=== PATIENT | female | born 1945 | race Caucasian/White ===

== ENCOUNTER 2023-11-24 08:11 | Emergency (ER) | payer MEDICARE, OTHER, SELFPAY ==
[2023-11-24 08:25] VITALS: BP 126/60
[2023-11-24] MEDS: DUONEB 3 ML INH (08:35)
[2023-11-24 08:44] LABS: % Basophils 0.5 % (0-2); % Eosinophils 4.4 % (0-6); % Immature Granulocytes 0.2 % (0-0.5); % Lymphocytes 36.4 % (20.5-51.1); % Monocytes 7.8 % (1.7-9.3); % Neutrophils 50.7 % (42.2-75.2); Absolute Eosinophils 0.3 10^3/uL (0-0.7); Absolute Lymphocytes 2.2 10^3/uL (1.2-3.4); Absolute Monocytes 0.5 10^3/uL (0.1-0.6); Hematocrit 39.9 % (37.0-47.0); Hemoglobin 13.1 g/dL (12.0-16.0); Mean Corp Hgb Conc. 32.8 g/dL (33.0-37.0); Mean Corpuscular Hgb 28.4 pg (27.0-31.0); Mean Corpuscular Volume 86.6 fL (81.0-99.0); Mean Platelet Volume 9.1 fL (7.4-10.4); Nucleated Red Blood Cells % 0 %; Platelet Count 285 10^3/uL (130-400); Red Blood Cell Count 4.61 10^6/uL (4.20-5.40); Red Cell Dist. Width 13.1 % (11.5-14.5); White Blood Cell Count 5.9 10^3/uL (4.8-10.8)
[2023-11-24 09:00] VITALS: BP 133/80
--- NOTE | 2023-11-24 09:00 | ED.GENMED ---
History of Present Illness
General
Chief Complaint: Chest Pain
Source: patient
Exam Limitations: dementia
Time Seen by Provider: 11/24/23 08:20
Nursing documentation reviewed up to this point in time: agreed with
History of Present Illness
History of Present Illness:
78 y/o F with h/o anxiety, lung cancer, dementia
right lower lobectomy complication from punctured lung from thyroid procedure
here with tani [email or web address] this morning sometime aroun d7 am
she has dementia and doesn't recall details; to most of my questions, she answered, 'i am not sure'
she does have asthma but currently doesn't feel overly SOB
she has no pain with deep breathing
pt has not had known fever, cough, leg swelling, syncope
no h/o CAD or cardiac conditoins
i spoke wtih RN at [facility]
says that she came to her in a panic regarding L sided chest pain an dwas obviously anxious and tachypneic
apparently recently the psychiatrist has lowered her ativan dose, she had been up to 2 mg daily but they are backign down to ativan 0.5 mg bid and she has been more anxious recently
they gave her albuterol but she was insistent on coming ot the ER
pt doesn't recall that she ever had significant pain and is just calling it a discomfot.
no h/o DVT/PE
Past History
Past History
ED Past Medical History: Asthma, GERD, HTN, Hypercholesterolemia, Hyperthyroidism (hyperparathyroidism), Hypothyroidism, Psychiatric (Anxiety, Depression) and Other (OA, Right lower lobe of lung Punctured during surgery, slight Dementia)
ED Past Surgical History: Appendectomy, Gynecological (Hysterectomy), Orthopedic (L BRIE 09/2018) and Other (Hyperparathyroid removed, Deviated septum, Right eye surgery)
Patient has exhibited threatening behavior?: No
Social History
Tobacco: Non-smoker
Alcohol: Occasional (Wine 1-2 glasses)
Drug: None
Personal:
Living: retirement ([facility])
Employment: Retired
Family History
Family History: Other
Review of Systems
Review of Systems
Allergies reviewed?: Yes
All Other Systems: Not applicable
Phy Exam
Physical Exam
Physical Exam:
GENERAL: Alert , anxious
EYE: pupils equal and reactive
NECK: Supple
ENT: o/p clr, mmm.
CARDIAC: Regular rate and rhythm .no obvious murmur
LUNGS: R sided upper lobe no BS
mild tachypnea
no significant wheezing
no cough
no splinting
no crackles
ABDOMEN: Soft, without focal tenderness, no r/g, no cvat, normal bowel sounds
NEUROLOGICAL: Alert and oriented, no focal neuro deficits
SKIN: Warm and dry, skin intact.
MUSCULOSKELETAL: No edema, well perfused. neg hannah's sign
PSYCH: anxious
Scores
Heart Score for Chest Pain Patients
STEMI patient?: No
History: Slightly or Non-Suspicious
ECG: Nonspecific Repolarization
Age: >/= 65 years
Risk Factors: 1 or 2 Risk Factors
Troponin: </= Normal Limit
Heart Score for Chest Pain Patients: 4
Heart Score Risk: 20.3% MACE over next 6 weeks
Course
Orders/Labs/Results
Orders:
Orders
11/24/23 08:18
EKG [Electrocardiogram (*1)] Urgent
Reason for Study: Chest Pain
EKG- Treatment ONCE
11/24/23 08:31
Ipratropium/Albuterol Sulfate [Duoneb] 3 ml INH R NOW ONE
11/24/23 08:32
Complete Blood Count/With Diff Urgent
Comprehensive Metabolic Panel Urgent
D-Dimer Urgent
Lipase Urgent
Troponin I Urgent
11/24/23 09:02
Lorazepam [Ativan] 0.5 mg PO NOW STA
11/24/23 09:52
EKG- Treatment ONCE
CR Chest - 2 Views Urgent
Comment:
Reason For Exam: chest pain
11/24/23 11:30
Electrocardiogram (*1) Urgent
Reason for Study: Chest Pain
11/24/23 11:51
Troponin I Urgent
Abnormal Lab Results
11/24/23
08:32
MCHC 32.8 L g/dL
(33.0-37.0)
Carbon Dioxide 31 H mmol/L
(22-30)
Glucose 113 H mg/dl
(70-99)
11/24/23 08:32
11/24/23 08:32
Vital Signs
Initial and Last Documented VS:
Initial Vital Signs
Pulse Resp BP Pulse Ox
75 16 126/60 95
11/24/23 08:25 11/24/23 08:25 11/24/23 08:25 11/24/23 08:25
Last Documented Vital Signs
Temp Pulse Resp BP Pulse Ox
98.2 F 75 24 133/80 96
11/24/23 08:37 11/24/23 09:45 11/24/23 09:45 11/24/23 09:00 11/24/23 09:45
MDM/Problems Addressed
Differential Diagnosis Includes:
chest pain, anxiety, acs, msk pain
MDM/Problems Addressed:
78 y/o F with dementia
according to Nursing staff was in a panic c/o chest pain this morning and seemed very anxious
pt does not really recall any of this well now
she has minimal discomfort if any
her vitals stable, ekg nonischemic
given timing and herat score, pt had 2 troponins and ekgs which were neg for ischemia
she was well here, asking to eat
will be transferred back to facility
*Critical Care Note
Total Time (30-74mins, 75-104mins- exclusive of procedures): Not Applicable
ED Attending Note
-
Portions of this chart may have been created with voice recognition software.� Occasional wrong word or��sound alike� substitutions may have occurred due to the inherent limitations of voice recognition software.
Discharge Plan
Departure
Patient Disposition: Home (Routine Discharge)
Date of Disposition: 11/24/23
Time of Disposition: 12:56
Patient with high blood pressure during this ER visit?: No
Condition: Fair
Covid-19: Not Applicable
Discharge Problem:
Chest pain, Anxiety
Instructions: Anxiety, Adult ED, Chest Pain PCP Follow Up
Prescriptions:
No Action
albuterol sulfate 1 PUFF HFA aerosol inhaler
1 puff inhalation R Q4HPRN PRN (Reason: sob)
fluticasone propion-salmeterol [Advair Diskus] 500-50 mcg/dose blister with device
1 ea INHALATION R BID
magnesium hydroxide [Milk of Magnesia] 400 mg/5 mL Suspension
30 ml PO DAILYPRN PRN (Reason: no BM > 3 days)
bisacodyl 10 mg Suppository
10 mg [place] DAILYPRN PRN (Reason: if no bm aftr mom)
albuterol sulfate 2.5 mg /3 mL (0.083 %) Solution For Nebulization
2.5 mg INHALATION R Q6HPRN PRN (Reason: wheezing)
loperamide [Anti-Diarrheal (loperamide)] 2 mg Capsule
2 mg PO Q4HPRN PRN (Reason: diarrhea)
lorazepam 0.5 mg Tablet
0.5 mg PO Q8HPRN PRN (Reason: anxiety)
lorazepam 0.5 mg Tablet
1 mg PO BID
acetaminophen 325 mg tablet
650 mg PO Q4HPRN PRN (Reason: mild Pain)
zolpidem 5 mg tablet
5 mg PO HS
bupropion HCl [Wellbutrin SR] 150 mg Tablet Sustained-Release 12 Hr
150 mg PO DAILY
diphenhydramine HCl [Benadryl] 25 mg Capsule
25 mg PO TIDPRN PRN (Reason: itching)
oxycodone 5 mg tablet
5 mg PO Q4HPRN PRN (Reason: severe pain)
Referrals:
Benedict Cochran MD [Family Provider] -
Activity Restrictions/Additional Instructions:
Cinda's workup today here was unremarkable, she has 2 negative troponins and no EKG findings to be concerned about her heart. Her x-ray appears stable. She has no pneumonia. Her blood work was also reassuring. I suspect that she became anxious
this morning. We did give her a dose of 0.5 mg Ativan orally.
Interventions
Interventions:
*Risk Screen - Suicide Last Done: 11/24/23 08:25
*General Assessment Last Done: 11/24/23 08:25
*Neglect/Abuse Screening Last Done: 11/24/23 08:25
ED- Fall Risk Assessment Last Done: 11/24/23 08:42
*ED COVID-19 Vaccine History Last Done: 11/24/23 15:22
*Nursing Disposition Last Done: 11/24/23 15:22
ED- Cardiac Assessment Last Done: 11/24/23 08:42
Discharge Date and Time
Discharge Date/Time: 11/24/23 15:23
Print Language: SOU[place] KORE[place]
[2023-11-24 09:14] LABS: Troponin I < 0.012 ng/ml
[2023-11-24 09:15] LABS: ALT (SGPT) 29 U/L (0-35); AST (SGOT) 24 U/L (14-36); Albumin 4.1 g/dl (3.5-5.0); Alkaline Phosphatase 82 U/L (38-126); Blood Urea Nitrogen 15 mg/dl (7-17); Calcium 9.8 mg/dl (8.4-10.2); Carbon Dioxide 31 mmol/L (22-30); Chloride 102 mmol/L (98-107); Glucose 113 mg/dl (70-99); Lipase 292 U/L (23-300); Potassium 4.1 mmol/L (3.5-5.1); Sodium 141 mmol/L (135-145); Total Bilirubin 0.7 mg/dl (0.2-1.3); Total Protein 6.4 g/dl (6.3-8.2); eGFR > 60.00
[2023-11-24] MEDS: ATIVAN 0.5 MG PO (09:21)
[2023-11-24 12:32] LABS: Troponin I < 0.012 ng/ml
== END 2023-11-24 15:23 | disposition home or self-care (01) ==
LOC: EMR 08:11
PROVIDERS: Physician Assistant; EMERGENCY PHYSICIAN Student in an Organized Health Care Education/Training Program; FAMILY PHYSICIAN Family Medicine
DX: R07.89 Other chest pain (principal); F41.9 Anxiety disorder, unspecified; F03.94 Unspecified dementia, unspecified severity, with anxiety
CPT/HCPCS: 99285; 94640; 71046; 80053; 83690; 84484; 85025; 85379; 93005

== ENCOUNTER 2024-03-19 07:11 | Emergency (ER) | payer MEDICARE, OTHER, SELFPAY ==
[2024-03-19 07:19] VITALS: BP 139/71
--- NOTE | 2024-03-19 07:21 | ED.GENMED ---
History of Present Illness
General
Chief Complaint: Breathing Problem
Source: patient
Exam Limitations: none
Time Seen by Provider: 03/19/24 07:15
History of Present Illness
History of Present Illness:
See MDM
Past History
Past History
ED Past Medical History: Asthma, GERD, HTN, Hypercholesterolemia, Hyperthyroidism (hyperparathyroidism), Hypothyroidism, Psychiatric (Anxiety, Depression) and Other (OA, Right lower lobe of lung Punctured during surgery, slight Dementia)
ED Past Surgical History: Appendectomy, Gynecological (Hysterectomy), Orthopedic (L BRIE 09/2018) and Other (Hyperparathyroid removed, Deviated septum, Right eye surgery)
Patient has exhibited threatening behavior?: No
Social History
Tobacco: Non-smoker
Alcohol: Occasional (Wine 1-2 glasses)
Drug: None
Personal:
Living: senior living ([facility])
Employment: Retired
Family History
Family History: Other
Phy Exam
Physical Exam
Physical Exam:
See MDM
Scores
Heart Failure Risk
Heart Failure Risk Score: Not Applicable
Course
Orders/Labs/Results
Orders:
Orders
03/19/24 07:21
Electrocardiogram (*1) Urgent
Reason for Study: Shortness of Breath
EKG- Treatment ONCE
CR Chest - 2 Views Urgent
Comment:
Reason For Exam: SOB
03/19/24 07:25
Complete Blood Count/With Diff Urgent
Comprehensive Metabolic Panel Urgent
03/19/24 08:39
Ipratropium/Albuterol Sulfate [Duoneb] 3 ml INH R NOW ONE
03/19/24 11:17
Case Management Consult ONCE
Case Management Consult: Discharge Planning
Comment: home O2
03/19/24 11:33
Ipratropium/Albuterol Sulfate [Duoneb] 3 ml INH R NOW ONE
Abnormal Lab Results
03/19/24
07:25
MCHC 31.7 L g/dL
(33.0-37.0)
Eosinophils % 8.3 H %
(0-6)
Carbon Dioxide 33 H mmol/L
(22-30)
Glucose 104 H mg/dl
(70-99)
03/19/24 07:25
03/19/24 07:25
Vital Signs
Initial and Last Documented VS:
Initial Vital Signs
Pulse Resp Pulse Ox
82 22 93
03/19/24 07:18 03/19/24 07:18 03/19/24 07:18
Last Documented Vital Signs
Temp Pulse Resp BP Pulse Ox
98.0 F 92 20 129/85 93
03/19/24 07:19 03/19/24 09:45 03/19/24 09:45 03/19/24 09:00 03/19/24 11:15
MDM/Problems Addressed
Differential Diagnosis Includes:
HPI and MDM Narrative:
78-year-old female presenting with resolved shortness of breath. She does have a history of asthma. She was concerned because her albuterol inhaler was not working. She was given a DuoNeb and Decadron and symptoms immediately started to improve.
On arrival, patient is smiling and states she feels so much better. Given her prior history of lung resection, will obtain chest x-ray. Will obtain basic blood work and screening EKG.
Physical exam
General: Well appearing and non-toxic
HEENT: protecting airway
Neck: appears supple
CV: No evidence of cyanosis
Resp: No accessory muscle use. Mildly diminished breath sounds in the right
Abd: Non-distended
Extremities: No deformities. No leg edema or tenderness
Neuro: alert
Psych: Normal affect
Skin: Intact
Problems Addressed including Acute and Chronic Conditions affecting care:
1. Asthma exacerbation
Acuity: acute
Prognosis: stable
Details: Symptoms improved with DuoNeb and Decadron provided by EMS. Will obtain chest x-ray
Updates
Chest x-ray clear and appears unchanged from prior. On reassessment, she feels comfortable going home and feels better
Prior to discharge, patient intermittently becoming hypoxic. Although, she is feeling better. She was placed on 2 L nasal cannula and I suggested that she be admitted. Patient declined. I did discuss the case with case management who was unable
to set up home oxygen. Patient still stating that she wants to go home. She was given another DuoNeb prior to discharge discussed strict return precautions. Patient understands the risk of being discharged
Differential Diagnosis (but not limited to): Asthma exacerbation, pleural effusion, pneumonia
Testing considered: Viral testing
Drug therapy (if applicable): OTC meds, please see d/c instruction regarding Rx drugs
Amount and/or Complexity of Data Reviewed
Clinical info obtained from: Patient
External data reviewed: N/A
Labs I independently reviewed (but not limited to): White blood cell count normal
Radiology: X-ray independently reviewed: Chest x-ray clear
Pulse Ox: not hypoxic
EKG independently reviewed: N/A
Pressure Vessel Inspector: N/A
Critical Care: N/A
Risk of Complication:
Social Determinants of health: Good social support
Discussed with other providers: N/A
Escalation of Care includes Admit/Obs: After being observed in the Emergency Department, pt stable for discharge.
Occasional wrong word or 'sound a like' substitutions may have occurred due to the inherent limitations of voice recognition software. Read the chart carefully and recognize, using context, where substitutions have occurred.
*Critical Care Note
Total Time (30-74mins, 75-104mins- exclusive of procedures): Not Applicable
ED Attending Note
-
Portions of this chart may have been created with voice recognition software.� Occasional wrong word or��sound alike� substitutions may have occurred due to the inherent limitations of voice recognition software.
Discharge Plan
Departure
Patient Disposition: Home (Routine Discharge)
Date of Disposition: 03/19/24
Time of Disposition: 09:05
Patient with high blood pressure during this ER visit?: No
Discharge Problem:
Asthma exacerbation
Instructions: Asthma, Adult (DC)
Prescriptions:
New
prednisone 10 mg tablet
See Rx Instructions .ROUTE .COMPLEX Qty: 45 0RF
Rx Instructions:
5 tabs day 1-3, 4 tabs day 4-6, 3 tabs day 7-9, 2 tabs day 10-12, 1 tab day 13-15
No Action
albuterol sulfate 1 PUFF HFA aerosol inhaler
1 puff inhalation R Q4HPRN PRN (Reason: sob)
fluticasone propion-salmeterol [Advair Diskus] 500-50 mcg/dose blister with device
1 ea INHALATION R BID
magnesium hydroxide [Milk of Magnesia] 400 mg/5 mL Suspension
30 ml PO DAILYPRN PRN (Reason: no BM > 3 days)
bisacodyl 10 mg Suppository
10 mg [place] DAILYPRN PRN (Reason: if no bm aftr mom)
albuterol sulfate 2.5 mg /3 mL (0.083 %) Solution For Nebulization
2.5 mg INHALATION R Q6HPRN PRN (Reason: wheezing)
loperamide [Anti-Diarrheal (loperamide)] 2 mg Capsule
2 mg PO Q4HPRN PRN (Reason: diarrhea)
lorazepam 0.5 mg Tablet
0.5 mg PO Q8HPRN PRN (Reason: anxiety)
lorazepam 0.5 mg Tablet
1 mg PO BID
acetaminophen 325 mg tablet
650 mg PO Q4HPRN PRN (Reason: mild Pain)
zolpidem 5 mg tablet
5 mg PO HS
bupropion HCl [Wellbutrin SR] 150 mg Tablet Sustained-Release 12 Hr
150 mg PO DAILY
diphenhydramine HCl [Benadryl] 25 mg Capsule
25 mg PO TIDPRN PRN (Reason: itching)
oxycodone 5 mg tablet
5 mg PO Q4HPRN PRN (Reason: severe pain)
Referrals:
Benedict Cochran MD [Family Provider] -
Activity Restrictions/Additional Instructions:
Please return for any worsening symptoms.
You may return at any time if you have further concerns.
Please follow up with your doctor at the first available appointment, preferably this week.
Thank you for choosing [facility].
Discharge Date and Time
Print Language: SAMMARINESE
[2024-03-19 07:41] LABS: % Basophils 1.2 % (0-2); % Eosinophils 8.3 % (0-6); % Lymphocytes 37.6 % (20.5-51.1); % Monocytes 8.3 % (1.7-9.3); % Neutrophils 44.6 % (42.2-75.2); Absolute Basophils 0.1 10^3/uL (0-0.2); Absolute Eosinophils 0.4 10^3/uL (0-0.7); Absolute Lymphocytes 1.9 10^3/uL (1.2-3.4); Absolute Monocytes 0.4 10^3/uL (0.1-0.6); Absolute Neutrophils 2.2 10^3/uL (1.4-6.5); Hematocrit 37.9 % (37.0-47.0); Mean Corp Hgb Conc. 31.7 g/dL (33.0-37.0); Mean Corpuscular Hgb 28.2 pg (27.0-31.0); Mean Platelet Volume 9.4 fL (7.4-10.4); Nucleated Red Blood Cells % 0 %; Platelet Count 247 10^3/uL (130-400); Red Blood Cell Count 4.26 10^6/uL (4.20-5.40); Red Cell Dist. Width 12.6 % (11.5-14.5)
[2024-03-19 07:52] LABS: ALT (SGPT) 21 U/L (0-35); AST (SGOT) 22 U/L (14-36); Alkaline Phosphatase 78 U/L (38-126); Blood Urea Nitrogen 14 mg/dl (7-17); Carbon Dioxide 33 mmol/L (22-30); Chloride 99 mmol/L (98-107); Glucose 104 mg/dl (70-99); Sodium 138 mmol/L (135-145); Total Bilirubin 0.4 mg/dl (0.2-1.3); Total Protein 6.3 g/dl (6.3-8.2); eGFR > 60.00
[2024-03-19 08:00] VITALS: BP 146/85
[2024-03-19] MEDS: DUONEB 3 ML INH (08:56)
[2024-03-19 09:00] VITALS: BP 129/85
--- NOTE | 2024-03-19 11:39 | CM ---
CM was consulted for home oxygen. [place] spoke with Dr. Masterson who stated that patient does not need home oxygen at this time. Plan for transport back to her home.
[2024-03-19] MEDS: ProAIR HFA INHALER 2 PUFF INH (11:45)
== END 2024-03-19 12:04 | disposition home or self-care (01) ==
LOC: EMR 07:11
PROVIDERS: EMERGENCY PHYSICIAN Student in an Organized Health Care Education/Training Program; FAMILY PHYSICIAN Family Medicine
DX: J45.901 Unspecified asthma with (acute) exacerbation (principal); K21.9 Gastro-esophageal reflux disease without esophagitis; I10 Essential (primary) hypertension; E78.00 Pure hypercholesterolemia, unspecified; E03.9 Hypothyroidism, unspecified; F41.8 Other specified anxiety disorders; Z90.49 Acquired absence of other specified parts of digestive tract; Z90.710 Acquired absence of both cervix and uterus
CPT/HCPCS: 99284; 94640; 71046; 80053; 85025; 93005

== ENCOUNTER 2024-06-08 16:59 | Emergency (ER) | payer MEDICARE, OTHER, SELFPAY ==
[2024-06-08 17:05] VITALS: BMI 26.2
[2024-06-08 17:07] VITALS: BP 143/76
[2024-06-08 17:09] VITALS: BP 143/76
[2024-06-08 17:17] LABS: % Basophils 0.7 % (0-2); % Eosinophils 3.7 % (0-6); % Immature Granulocytes 0.1 % (0-0.5); % Lymphocytes 28.9 % (20.5-51.1); % Neutrophils 59.6 % (42.2-75.2); Absolute Basophils 0.1 10^3/uL (0-0.2); Absolute Eosinophils 0.3 10^3/uL (0-0.7); Absolute Monocytes 0.5 10^3/uL (0.1-0.6); Hematocrit 38.5 % (37.0-47.0); Hemoglobin 12.5 g/dL (12.0-16.0); Mean Corp Hgb Conc. 32.5 g/dL (33.0-37.0); Mean Corpuscular Volume 86.1 fL (81.0-99.0); Mean Platelet Volume 9.9 fL (7.4-10.4); Nucleated Red Blood Cells % 0 %; Platelet Count 255 10^3/uL (130-400); Red Blood Cell Count 4.47 10^6/uL (4.20-5.40); Red Cell Dist. Width 12.7 % (11.5-14.5); White Blood Cell Count 6.7 10^3/uL (4.8-10.8)
[2024-06-08 17:30] VITALS: BP 138/79
[2024-06-08 17:42] LABS: Troponin I < 0.012 ng/ml
[2024-06-08 17:53] LABS: ALT (SGPT) 19 U/L (0-35); AST (SGOT) 25 U/L (14-36); Albumin 4.2 g/dl (3.5-5.0); Alkaline Phosphatase 80 U/L (38-126); Blood Urea Nitrogen 14 mg/dl (7-17); Calcium 9.7 mg/dl (8.4-10.2); Carbon Dioxide 33 mmol/L (22-30); Chloride 102 mmol/L (98-107); Estimated Creatinine Clearance 62 ml/min; Glucose 105 mg/dl (70-99); Potassium 3.9 mmol/L (3.5-5.1); Sodium 142 mmol/L (135-145); Total Bilirubin 0.5 mg/dl (0.2-1.3); Total Protein 6.6 g/dl (6.3-8.2); eGFR > 60.00
[2024-06-08 18:00] VITALS: BP 137/78
--- NOTE | 2024-06-08 18:04 | ED.GENMED ---
History of Present Illness
General
Chief Complaint: Chest Pain
Source: patient
Time Seen by Provider: 06/08/24 17:49
History of Present Illness
History of Present Illness:
78-year-old female presents to the emergency room complaining of left-sided chest pain. Pain is sharp on the left chest. No shortness of breath. Patient states the pain began suddenly while sitting. She cannot recall any other details of the
chest discomfort.
Past History
Past History
ED Past Medical History: Asthma, GERD, HTN, Hypercholesterolemia, Hyperthyroidism (hyperparathyroidism), Hypothyroidism, Psychiatric (Anxiety, Depression) and Other (OA, Right lower lobe of lung Punctured during surgery, slight Dementia)
ED Past Surgical History: Appendectomy, Gynecological (Hysterectomy), Orthopedic (L BRIE 09/2018) and Other (Hyperparathyroid removed, Deviated septum, Right eye surgery)
Patient has exhibited threatening behavior?: No
Social History
Tobacco: Non-smoker
Alcohol: Occasional (Wine 1-2 glasses)
Drug: None
Personal:
Living: senior care ([facility])
Employment: Retired
Family History
Family History: Other
Phy Exam
Physical Exam
Physical Exam:
General: Awake, Alert, Oriented X3. No acute distress.
Vitals: unremarkable
Head: Atraumatic
Eyes: Pupils equal, EOMI
Throat: Airway intact, no exudates
Neck: Trachea midline
Thorax: Tenderness to palpation over the left upper and lateral thorax
Lungs: Clear and equal b/l
Heart: Regular rate, no murmurs
Abd: Soft, Nontender, No pulsatile mass
Neuro: Nonfocal
Skin: Warm, dry, no rash
Extremities: pulses equal b/l, no edema
Scores
Heart Score for Chest Pain Patients
STEMI patient?: No
History: Slightly or Non-Suspicious
ECG: Nonspecific Repolarization
Age: >/= 65 years
Risk Factors: 1 or 2 Risk Factors
Troponin: </= Normal Limit
Heart Score for Chest Pain Patients: 4
Heart Score Risk: 20.3% MACE over next 6 weeks
Course
Orders/Labs/Results
Orders:
Orders
06/08/24 17:00
Electrocardiogram (*1) Urgent
Reason for Study: Chest Pain
06/08/24 17:01
EKG- Treatment ONCE
06/08/24 17:05
Complete Blood Count/With Diff Urgent
Comprehensive Metabolic Panel Urgent
Troponin I Urgent
06/08/24 17:11
CXR2 [CR Chest - 2 Views ] Urgent
Comment:
Reason For Exam: left sided chest pain, suddden onset
06/08/24 18:03
Acetaminophen [Tylenol] 1,000 mg PO NOW STA
Abnormal Lab Results
06/08/24
17:05
MCHC 32.5 L g/dL
(33.0-37.0)
Carbon Dioxide 33 H mmol/L
(22-30)
Glucose 105 H mg/dl
(70-99)
06/08/24 17:05
06/08/24 17:05
Vital Signs
Initial and Last Documented VS:
Initial Vital Signs
Resp BP Pulse Ox
18 143/76 96
06/08/24 17:07 06/08/24 17:07 06/08/24 17:07
Last Documented Vital Signs
Temp Pulse Resp BP Pulse Ox
97.8 F 85 20 133/80 92
06/08/24 17:09 06/08/24 20:00 06/08/24 20:00 06/08/24 20:00 06/08/24 19:00
MDM/Problems Addressed
Differential Diagnosis Includes:
Angina, pneumothorax, chest wall pain
MDM/Problems Addressed:
Patient presents with chest pain. EKG here shows no acute ischemic changes. Troponin is unremarkable and was performed 2 hours after onset of pain. Given we are using an ultrasensitive troponin this essentially rules out ischemia. Additionally
my suspicion for cardiac chest pain is quite low given the reproducibility of the chest discomfort. Chest x-ray shows no acute abnormality chest x-ray shows no acute abnormality though she does have chronic right diaphragmatic elevation
*Radiology
Radiology exam reviewed: preliminary read by ED provider (No acute abnormalities, chronic right hemidiaphragmatic elevation)
*Pulse Oximetry
Patient hypoxic: no
*EKG
Interpreted by ED Provider?: Yes
Interpretation: normal
Heart Rate: 89
Rate: normal
Rhythm: sinus
[place]: normal axis
Interval: normal interval
QRS Pattern: normal QRS
Ischemia: no ischemia
*School Counselor Interpretation
Rate: normal
Interpretation: normal
Rhythm: sinus
*Critical Care Note
Total Time (30-74mins, 75-104mins- exclusive of procedures): Not Applicable
ED Attending Note
-
Portions of this chart may have been created with voice recognition software.� Occasional wrong word or��sound alike� substitutions may have occurred due to the inherent limitations of voice recognition software.
Discharge Plan
Departure
Patient Disposition: Home (Routine Discharge)
Date of Disposition: 06/08/24
Time of Disposition: 19:50
Patient with high blood pressure during this ER visit?: Yes
Condition: Good
Discharge Problem:
Chest pain, Chest wall pain
Instructions: Costochondritis, Chest Pain PCP Follow Up
Prescriptions:
No Action
magnesium hydroxide [Milk of Magnesia] 400 mg/5 mL Suspension
30 ml PO [id number] PRN (Reason: no BM > 3 days)
bisacodyl 10 mg Suppository
10 mg [place] DAILYPRN PRN (Reason: if MOM ineffective after 24 hrs)
acetaminophen 325 mg tablet
650 mg PO Q4HPRN MDD 3000mg PRN (Reason: mild Pain)
oxycodone 5 mg tablet
5 mg PO Q4HPRN PRN (Reason: severe pain)
bupropion HCl 150 mg Tablet Sustained-Release 12 Hr
150 mg PO DAILY@0700
lorazepam 1 mg Tablet
1 mg PO BID@0700,1800
loperamide 2 mg Capsule
2 mg PO Q4HPRN PRN (Reason: diarrhea)
diphenhydramine HCl [Banophen] 25 mg Capsule
25 mg PO Q8HPRN PRN (Reason: itching/rash)
fluticasone propion-salmeterol 250-50 mcg/dose Blister With Device
1 inh INHALATION R BID
amlodipine 5 mg Tablet
5 mg PO DAILY
quetiapine 100 mg Tablet
100 mg PO HS
triamcinolone acetonide 0.1 % Cream
1 applic TOPICAL DAILY
Patient Comments:
legs untill healed
lorazepam 0.5 mg Tablet
0.5 mg PO BIDPRN PRN (Reason: anxiety)
trazodone 150 mg Tablet
150 mg PO HS
diphenhydramine HCl 25 mg Tablet
25 mg PO Q4HPRN PRN (Reason: rash/swelling)
diphenhydramine HCl [Banophen] 25 mg Tablet
25 mg PO DAILY
zolpidem 10 mg Tablet
10 mg PO HS
albuterol sulfate 90 mcg/actuation Hfa Aerosol Inhaler
2 puff INHALATION R QID
Systane (PF) 0.4-0.3 % Dropperette
1 drp BOTH EYES DAILY PRN (Reason: dry eyes)
Dulera 100-5 mcg/actuation Hfa Aerosol Inhaler
2 puff INHALATION R DAILY
Referrals:
Benedict Cochran MD [Family Provider] -
Interventions
Interventions:
*Risk Screen - Suicide Last Done: 06/08/24 17:03
*General Assessment Last Done: 06/08/24 17:03
*Neglect/Abuse Screening Last Done: 06/08/24 17:03
*ED- Fall Risk Assessment Last Done: 06/08/24 17:03
*ED COVID-19 Vaccine History Last Done: 06/08/24 17:03
*Nursing Disposition Last Done: 06/08/24 22:16
ED- Cardiac Assessment Last Done: 06/08/24 17:10
Discharge Date and Time
Discharge Date/Time: 06/08/24 22:16
Print Language: AMERICAN
[2024-06-08] MEDS: TYLENOL 1000 MG PO (18:26)
[2024-06-08 19:00] VITALS: BP 141/92
[2024-06-08 20:00] VITALS: BP 133/80
== END 2024-06-08 22:16 | disposition home or self-care (01) ==
LOC: EMR 16:59
PROVIDERS: Student in an Organized Health Care Education/Training Program; EMERGENCY PHYSICIAN Emergency Medicine; FAMILY PHYSICIAN Family Medicine
DX: R07.89 Other chest pain (principal); J45.909 Unspecified asthma, uncomplicated; K21.9 Gastro-esophageal reflux disease without esophagitis; I10 Essential (primary) hypertension; E78.00 Pure hypercholesterolemia, unspecified; E03.9 Hypothyroidism, unspecified; F41.8 Other specified anxiety disorders; Z90.49 Acquired absence of other specified parts of digestive tract; Z90.710 Acquired absence of both cervix and uterus
CPT/HCPCS: 99283; 71046; 80053; 84484; 85025; 93005